=== PATIENT | female | born 1980 | race Two or more races ===

== ENCOUNTER 2021-08-10 12:53 | Emergency (ER) | payer OTHER, SELFPAY ==
[2021-08-10 13:00] VITALS: BP 128/32; PULSE 92; RESP 18; TEMP 36.9; O2SAT 98; BMI 21.9
[2021-08-10 16:00] VITALS: BP 143/91; PULSE 82; RESP 18; O2SAT 100
--- NOTE | 2021-08-10 17:55 | ED.HA ---
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 Comes here for similar pain worried about the stroke without any focal deficit no significant headache at this time no vomiting no fever patient feels that she is under more stress lately Related Data Previous Rx's Medication Instructions Recorded amitriptyline 50 mg tablet 50 mg PO BEDTIME #20 tab 08/10/21 tramadol 50 mg tablet 50 mg PO Q6H PRN #20 tab 08/10/21 Allergies Allergy/AdvReac Type Severity Reaction Status Date / Time No Known Allergies Allergy Unknown Verified 08/10/21 12:59 Review of Systems Review of Systems: Yes all other systems are reviewed and are negative [facility] Past Medical History Medical History (Updated 08/10/21 @ 18:30 by Noel Henry MD) Frequent headaches Social History Social History Advance Directives: No Advance Directives Information Provided: No Patient : No Physical Exam Vital Signs: Vital Signs: Last Vital Signs Temp 98.5 F 08/10/21 13:00 Pulse 76 08/10/21 17:58 Resp 16 08/10/21 17:58 BP 123/82 08/10/21 17:58 Pulse Ox 100 08/10/21 17:58 BMI result Body Mass Index 21.9 Appearance: Alert. Oriented X3. No acute distress. Anxious Eyes: PERRLA, No Nystagmus ENT: Pharynx normal. Oral Mucosa moist Neck: Normal inspection. Neck supple. CVS: Normal heart rate and rhythm. Pulses normal. Respiratory: No respiratory distress clear to auscultation bilateral Skin: Skin warm and dry. Normal skin color. Normal skin turgor. Extremities: No lower extremity edema. No calf tenderness back: Diffuse trapezius scapular muscle tenderness and spasm Neuro: Oriented X 3. No motor deficit. No sensory deficit.No cerebellar signs , cranial nerves II-XII intact MDM - Headache MDM Narrative Medical decision making narrative: Patient with multiple complaints seems like anxiety with poor sleep and fibromyalgia will discharge patient home on tramadol and amitriptyline Discharge Plan Discharge Clinical Impression: Fibromyalgia Patient Disposition: Home, Self-Care Instructions: Fibromyalgia (ED) Additional Instructions: Your pain is likely from fibromyalgia Take medication as advised and follow with PCP for further evaluation including physical therapy Prescriptions: New tramadol 50 mg tablet 50 mg PO Q6H PRN (Reason: pain) Qty: 20 RF: 0 amitriptyline 50 mg tablet 50 mg PO BEDTIME Qty: 20 RF: 0
[2021-08-10 17:58] VITALS: BP 123/82; PULSE 76; RESP 16; O2SAT 100
[2021-08-10] MEDS: traMADoL HCL 50 MG TABLET PO (18:37)
== END 2021-08-10 18:44 | disposition home or self-care (01) ==
PROVIDERS: Emergency Provider Internal Medicine; PCP Physician Assistant
DX: M79.7 Fibromyalgia (principal); R51.9 Headache, unspecified; Z79.899 Other long term (current) drug therapy
CPT/HCPCS: 99283; 99284